=== PATIENT | female | born 1960 | race Caucasian/White ===

== ENCOUNTER 2019-04-26 10:04 | Day surgery (SDC) | payer OTHER ==
[~2019-04-26 10:04] MED LIST: DESFLURANE 15 MIN
[2019-04-26] MEDS ORDERED: POVIDONE IODINE 10% 28.4 GM OINT (13:18)
[2019-04-26] MEDS ORDERED: LIDOCAINE 1% (MPF) 30 ML INJ (13:18)
[2019-04-26] MEDS ORDERED: BUPIVACAINE 0.5% (SDV) 30 ML INJ (13:18)
[2019-04-26] MEDS ORDERED: POLYMYXIN/BACITRACIN 1L IRRIG (13:18)
[2019-04-26] MEDS ORDERED: PROPOFOL 40 ML (13:41)
[2019-04-26] MEDS ORDERED: CEFAZOLIN 1 GM INJ (13:41)
[2019-04-26] MEDS ORDERED: FENTAnyl 50 MCG/ML VIAL (13:42)
[2019-04-26] MEDS ORDERED: FAMOTIDINE 20 MG INJ (13:42)
[2019-04-26] MEDS ORDERED: MIDAZOLAM 1 MG/ML 2 ML INJ (13:42)
[2019-04-26] MEDS ORDERED: ONDANSETRON 4 MG INJ (13:42)
[2019-04-26] MEDS: POLYMYXIN/BACITRACIN 1L IRRIG IRR (13:50)
[2019-04-26] MEDS: BUPIVACAINE 0.5% (MPF) 30 ML INJ INJ (14:36)
[2019-04-26] MEDS ORDERED: KETOROLAC 30 MG INJ (14:50)
[2019-04-26] MEDS ORDERED: ONDANSETRON 4 MG INJ IV (15:30)
[2019-04-26] MEDS ORDERED: OXYCODONE/ACETAMINOPHEN (5/325) TAB PO ×2 (15:30)
[2019-04-26] MEDS ORDERED: HYDROmorphONE 1 MG/5 ML IV SYRINGE IV ×3 (15:30→15:33)
[2019-04-26] MEDS: HYDROmorphONE 1 MG/5 ML IV SYRINGE IV (15:46)
== END 2019-04-26 17:06 | disposition home or self-care (01) ==
LOC: SDS 10:04
DX: M20.12 Hallux valgus (acquired), left foot (principal); M21.612 Bunion of left foot; M20.42 Other hammer toe(s) (acquired), left foot
CPT/HCPCS: 28285; 88304; 88311